=== PATIENT | female | born 1985 | race African-American/Black ===

== ENCOUNTER 2019-10-31 19:38 | Inpatient (IN) | payer OTHER ==
[~2019-10-31] VITALS: Ht 167.6 cm; Wt 84.8 kg
[~2019-10-31 19:38] MED LIST: BACTRIM DS TAB1 EACH PO; MACROBID 100 M100 M1 PO; NORCO 5-325 TA1 EACH PO; TRINATE TABLET1 TAB PO
[2019-10-31 19:39] VITALS: BP 119/80
[2019-10-31] MEDS ORDERED: NF (19:56)
[2019-10-31 20:35] LABS: ABSOLUTE NEUTROPHILS 15.4 thou/uL (1.4-8.2); BASOPHILS 0.3 % (0.0-2.0); EOSINOPHILS 0.3 % (0.0-3.0); HEMATOCRIT 42.2 % (37.0-47.0); HEMOGLOBIN 14.7 gm/dL (12.0-15.0); LYMPHOCYTES 7.4 % (24.0-44.0); MCH 29.9 pg (26.0-34.0); MCV 85.6 fL (80.0-100.0); MONOCYTES 7.9 % (1.0-8.0); PLATELET COUNT 324 thou/uL (150-400); POLYS 84.1 % (36.0-66.0); RBC 4.92 mil/uL (4.20-5.00); RDW 12.8 % (10.5-14.5); WBC 18.3 thou/uL (4.0-11.0)
[2019-10-31 20:51] LABS: CALCIUM 10.8 mg/dL (8.5-10.1); CREATININE 1.2 mg/dL (0.6-1.0)
[2019-11-01 01:27] VITALS: BP 111/72
[2019-11-01 01:34] VITALS: BP 111/72
[2019-11-01 01:51] VITALS: BP 99/63
--- NOTE | 2019-11-01 02:50 | NUR ---
ADMITTED FROM ER UNDER 'S CARE. AWAITING TO BE SEEN BY INPATIENT [facility] PHYSICIAN AT THIS TIME. AXOX4. AMBULATORY. HOB ELEVATED. VSS. NO S/S ACUTE DISTRESS NOTED OR REPORTED AT THIS TIME. WILL CONT TO MONITOR FOR ANY CHANGES IN CONDITION.
[2019-11-01 04:19] VITALS: BP 99/68
[2019-11-01 08:36] VITALS: BP 113/75
--- NOTE | 2019-11-01 16:47 | NUR ---
ASSUMED CARE AT 0700. PT IS ALERT AND ORIENTED. VSSA/RA. HURTS TO SWALLOW NO DIFFICULTY BREATHING. ENT TO BEDSIDE TODAY. MINIMAL FLUID DRAINED. PLAN TO ADVANCE DIET TOLERATES AND ENCOURAGE DRINKING. TOLERATING WELL. BLOOD SUGARS HIGH, MEDICATION ORDERED. PIV INFUSING WITHOUT ISSUES. PT IS STEADY, UAL. CALL LIGHT IN REACH. WILL CONTINUE TO MONITOR
[2019-11-01 19:40] VITALS: BP 97/57
--- NOTE | 2019-11-02 02:25 | NUR ---
ASSUMED PT CARE AROUND 1930. AXOX4. INDEPENDENT WITH ADLs. CALLS APPROPRIATELY FOR ASSISTANCE. TOLERATING LIQUIDS AND DIET OK NOW WITHOUT N/V. PAIN MANAGED PER MD ORDER. NO S/S ACUTE DISTRESS NOTED OR REPORTED AT THIS TIME. WILL CONT TO MONITOR FOR ANY CHANGES IN CONDITION.
[2019-11-02 05:36] LABS: GLYCOHEMOGLOBIN (HGB A1C) 13.4 % (4.8-5.6)
[2019-11-02 05:42] LABS: HEMATOCRIT 38.3 % (37.0-47.0); MCH 28.9 pg (26.0-34.0); MCHC 32.7 g/dL (28.0-37.0); MCV 88.4 fL (80.0-100.0); RBC 4.34 mil/uL (4.20-5.00); RDW 12.6 % (10.5-14.5); WBC 13.5 thou/uL (4.0-11.0)
[2019-11-02 05:49] LABS: HEMOGLOBIN 12.5 gm/dL (12.0-15.0)
[2019-11-02 05:55] LABS: CALCIUM 9.4 mg/dL (8.5-10.1); CREATININE 0.9 mg/dL (0.6-1.0); POTASSIUM 4.2 mmol/L (3.5-5.1)
[2019-11-02 07:30] VITALS: BP 108/66
--- NOTE | 2019-11-02 09:49 | NUR ---
ASSUMED CARE AT 0700. PT IS ALERT AND ORIENTED. VSSA/RA. COMPLAINTS OF STILL DIFFICULTY SWALLOWING. PAIN. TOLERATING DIET, ABLE TO EAT SMALL AMOUNTS. BLOOD SUGARS HIGH, CONTINUING TO MONITOR. IVF INFUSING WITHOUT ISSUES. PAIN MEDS GIVEN ORDERED. PT IS STEADY ON HER FEET, UAL. CALL LIGHT IN REACH. NEEDS ADDRESSED. WILL CONTINUE TO MONITOR
[2019-11-02 15:52] VITALS: BP 132/91
[2019-11-02 20:22] VITALS: BP 130/87
--- NOTE | 2019-11-03 02:28 | NUR ---
PATIENT ALERT AND ORIENTED X4. UP ADLIB. IVF INFUSING W/O COMPLICATION. MEDICATED FOR THROAT PAIN X1 AT TIME OF NOTE. BS MONITORED PER ORDER. COOPERATIVE WITH CARE. RESTING QUIETLY. SNACK REQUESTED AND GIVEN AFTER BS. WILL MONITOR.
[2019-11-03 07:22] VITALS: BP 130/77
--- NOTE | 2019-11-03 11:07 | NUR ---
ASSUMED CARES AT 0700. PT AWAKE, ALERT AND ORIENTED*4. C/O THROAT PAIN, PAIN MEDICATION ADMINISTERED NEEDED. VITALS REMAIN STABLE. PT EATING AND SWALLOWING WELL, MEDS CRUSHED IN APPLESAUCE AND TOLERATED WELL. IV ON RIGHT AC REMAINS INTACT AND PATENT, IV ANTIBIOTICS INFUSING ORDERED. PT TO DC TODAY, PT TEACHING TO BE COMPLETED AT THE BEDSIDE PRIOR TO DC. Q1H VISUAL CHECKS. CALL LIGHT WITHIN REACH
--- NOTE | 2019-11-03 11:53 | NUR ---
PT ADMITTED RELATED TO THERON-TONSILLAR ABSCESS,HYPERGLYCEMIA. CM REVIEWED CHART AND SPOKE WITH CARE TEAM. CM MET WITH PT AT BEDSIDE THIS DAY. PT IS A&O X4. CM ROLE INTRODUCED. PT INDICATED SHE LIVES IN AN [place]ART[place]N WITH HER KIDS. SHE INDICATED NO STEPS. 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 PT INDICATED SHE HAS A PCP AT [facility] [place]. PT IS PATIENT PAY. PT INDICATED THAT SHE WILL BE ABLE TO AFFORD HER MEDS UPON DC AND THAT THEY HAD BEEN CALLED INTO THE [facility] IN [place]. CARE TEAM INDICATED THAT PT WILL LIKELY BE MEDICALLY STABLE TO DC HOME THIS DAY. JUST WAITING FOR ENDO AND ENT TO SIGN OFF. PT IS AWARE AND AGREEABLE. NO OTHER CM INTERVENTION INDICATED. CASE CLOSED.
[2019-11-03] MEDS ORDERED: GLUCOPHAGE XR750 MG PO (12:35)
[2019-11-03] MEDS ORDERED: GLIPIZIDE ER2.5 MG PO (12:35)
[2019-11-03] MEDS ORDERED: AUGMENTIN 875-1 EACH PO (12:38)
[2019-11-03] MEDS ORDERED: HYDROCODON-ACE1 EAC7 PO (12:38)
[2019-11-03] MEDS ORDERED: PREDNISONE 10 M10 MG PO (12:39)
[2019-11-03 14:01] VITALS: BP 130/77
--- NOTE | 2019-11-04 12:03 | HC ---
[facility] [place] [address] CONSULTATION Name: TREMAINE MASON Room #: 457-P [facility] IN M.R.#: [id number] Admission: 11/01/19 Attend Phys: Javon Richter MD Discharge: 11/03/19 Date of : 87 Report #: [id number] THIS REPORT FOR: cc: EL - [facility] family physician/PCP EL - [facility] family physician/PCP Ellie Mtz MD ~ CC: [facility] physician/PCP Javon Richter DATE OF SERVICE: 11/03/2019 ENDOCRINE CONSULTATION NOTE CONSULTING PHYSICIAN: Dr. Richter. REASON FOR CONSULTATION: Uncontrolled type 2 diabetes mellitus. HISTORY OF PRESENT ILLNESS: This is a 34-year-old female patient whose medical background is significant for type 2 diabetes mellitus and who presented to the ER with complaints of sore throat that has worsened over the week preceding presentation. She had tested positive for strep throat prior to that presentation. The patient has not been able to utilize antibiotics because of her inability to swallow these tablets. Subsequently, she was admitted for IV antibiotic therapy. Again, the patient is known to have type 2 diabetes mellitus and indicates that she was diagnosed in 2015. She indicates that she was treated directly with insulin therapy, which she has not been taking for a few months as she believed her blood glucose values did not warrant insulin use. She describes that her blood glucose values were running in the 100s while on insulin, but has not been checking her blood glucose values lately. She has dealt off and on with issues pertaining to skin abscesses and other cutaneous infections over the past several months. She is not known to have retinopathy, nephropathy or neuropathy. The patient does not take any medications for hypertension and hyperlipidemia. REVIEW OF SYSTEMS: CONSTITUTIONAL: Fatigue, tiredness. No body weight changes. No fever or chills. HEENT: Noted for sore throat, progressive worsening with difficulty swallowing. PULMONARY: No shortness of breath, cough or hemoptysis. CARDIAC: Negative for chest pain, palpitations, syncope or presyncope. GASTROINTESTINAL: Negative for abdominal pain, nausea, vomiting or changes in bowel movement frequency. NEUROLOGY: Negative for loss of consciousness, headaches or seizure activity. PSYCHIATRIC: Negative for delusions, hallucinations or other major [address] [address] CONSULTATION Name: TREMAINE MASON Room #: 457-P [facility] IN M.R.#: [id number] Admission: 11/01/19 Attend Phys: Javon Richter MD Discharge: 11/03/19 Date of : 87 Report #: [id number] abnormalities. UROLOGY: Negative for dysuria, hematuria, or frequency. Otherwise, review of systems is noncontributory other than those mentioned in HPI. PAST MEDICAL HISTORY: 1. Type 2 diabetes mellitus. 2. Sickle cell trait. 3. History of cutaneous abscesses as noted above. CURRENT MEDICATIONS: None. ALLERGIES: No known drug allergies. FAMILY HISTORY: Noncontributory. 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 She is single. She has 2 children. She smokes a pack of cigarettes a day. Drinks alcohol only occasionally, but denies use of illicit drugs. PHYSICAL EXAMINATION: GENERAL: Pleasant -Kos[place] female patient who is not in apparent pain or distress. VITAL SIGNS: Blood pressure is 130/77 mmHg, heart rate is 60 beats per minute, respiration is 18 per minute, temperature is 36.6 degrees Celsius. CONSTITUTIONAL: The patient is sitting upright in bed, appears comfortable, not in apparent distress. HEENT: Anicteric sclerae. Intact extraocular motions. NECK: Supple, without JVD, carotid bruits or lymphadenopathy. I do not appreciate thyromegaly. CHEST: Clear to auscultation with scattered rales bilaterally, but no wheezes or crackles. HEART: Regular rate and rhythm without murmurs or gallops. ABDOMEN: Soft, lax. No guarding. Active bowel sounds. EXTREMITIES: Lower extremity exam is negative for ankle edema, skin breaks or ulcerations. NEUROLOGY: Awake, alert and oriented to time, place and person. The remainder of her examination is nonfocal. PSYCHIATRIC: Pleasant, interactive. Normal mood and affect. LABORATORY RESULTS: Blood glucose on arrival was 376 mg/dL and it got as high as 405 mg/dL, the most recent was 203 mg/dL. Sodium 134, potassium 4.2, chloride 103, CO2 of 25, anion gap 6, BUN 14, creatinine 0.9, glucose 301, calcium 9.4, EGFR 87. White blood count 13.5, hemoglobin 12.5, hematocrit 38.3, platelets 295. Hemoglobin A1c 13.4%. [address] [address] CONSULTATION Name: TREMAINE MASON Room #: 457-P [facility] IN ..#: [id number] Admission: 11/01/19 Attend Phys: Javon Richter MD Discharge: 11/03/19 Date of : 87 Report #: [id number] ASSESSMENT AND PLAN: 1. Type 2 diabetes mellitus. Uncontrolled as per the recorded blood glucose values during this hospital stay and as per her hemoglobin A1c. I counseled the patient extensively about the pathogenesis of type 2 diabetes mellitus, its implications, and the need to achieve and maintain adequate glycemic control so as to prevent diabetic complications. I counseled the patient about the fact that she cannot rely on symptoms alone to evaluate her current level of control using her current hemoglobin A1c to make that point. That said, the patient seems to have responded really well to low doses of Humalog supplemental scale and she does not have contraindications for oral therapy. That said, I would like to start her on metformin ER 750 mg b.i.d. as well as glipizide XL 5 mg daily with the advice for her to monitor her blood glucose at home to evaluate her responsiveness to this regimen. I stressed the need to maintain followup and evaluation for her progress to allow therapeutic adjustments to be made in a timely fashion. The patient indicated that she will be following with the [facility]. I stressed the importance of diet and exercise measures in achieving and maintaining adequate glycemic control. 2. Tonsillar abscess. The patient has been doing better on Unasyn antibiotic therapy as well as clindamycin. I believe that she will be converted to oral antibiotics in preparation for her discharge home. I certainly appreciate this consultation by Dr. Richter. <ELECTRONICALLY SIGNED> By: Ellie Mtz MD 11/04/19 1203 [id number] 1320 Ellie Mzt MD /nt
== END 2019-11-03 14:39 | disposition home or self-care (01) | DRG 872 ==
LOC: ER 19:38 → EROBS 11-01 01:06 → 4W 11-01 01:06
PROVIDERS: Emergency Medicine; Nurse Practitioner Family; ADMIT Internal Medicine; ATTEND Internal Medicine
PROC: 0WJ30ZZ Inspection of Oral Cavity and Throat, Open Approach (ICD-10-PCS; principal; 2019-11-01)
DX: A41.9 Sepsis, unspecified organism (principal); N17.9 Acute kidney failure, unspecified; J36 Peritonsillar abscess; E11.65 Type 2 diabetes mellitus with hyperglycemia; F17.210 Nicotine dependence, cigarettes, uncomplicated; Z79.899 Other long term (current) drug therapy
CPT/HCPCS: 10040

== ENCOUNTER 2020-03-18 23:54 | Emergency (ER) | payer OTHER ==
[~2020-03-18] VITALS: Ht 167.6 cm; Wt 81.7 kg
[~2020-03-18 23:54] MED LIST changes: +AUGMENTIN 875-1 EACH PO; +GLIPIZIDE ER2.5 MG PO; +GLUCOPHAGE XR750 MG PO; +HYDROCODON-ACE1 EAC7 PO; +NF; +PREDNISONE 10 M10 MG PO
[2020-03-19] MEDS ORDERED: CLINDAMYCIN HC300 MG PO (00:56)
[2020-03-19 01:18] VITALS: BP 105/62
== END 2020-03-19 01:19 | disposition home or self-care (01) ==
LOC: ER 23:54
DX: L02.415 Cutaneous abscess of right lower limb (principal); E11.9 Type 2 diabetes mellitus without complications; F17.210 Nicotine dependence, cigarettes, uncomplicated; Z79.2 Long term (current) use of antibiotics; Z79.899 Other long term (current) drug therapy

== ENCOUNTER 2021-06-16 23:23 | Emergency (ER) | payer OTHER ==
[~2021-06-16] VITALS: Ht 167.6 cm; Wt 74.4 kg
[~2021-06-16 23:23] MED LIST changes: +CLINDAMYCIN HC300 MG PO
[2021-06-16] MEDS ORDERED: LANTUS SOL100 UNIT/1 SQ (23:38)
[2021-06-16] MEDS ORDERED: LEVEMIR100 UNIT/2 (23:38)
[2021-06-17] MEDS ORDERED: DOXYCYCLINE 10100 MG PO (00:13)
[2021-06-17] MEDS ORDERED: NORCO7.5 PO (00:13)
[2021-06-17 00:30] VITALS: BP 118/72
== END 2021-06-17 00:30 | disposition home or self-care (01) ==
LOC: ER 23:23
DX: L02.31 Cutaneous abscess of buttock (principal); Z79.4 Long term (current) use of insulin; Z79.899 Other long term (current) drug therapy